=== PATIENT | male | born 1975 | race Caucasian/White ===

== ENCOUNTER 2023-10-30 10:23 | Emergency (ER) | payer OTHER, SELFPAY ==
[2023-10-30 10:25] VITALS: BP 120/74; PULSE 72; RESP 14; TEMP 36.6; O2SAT 99; BMI 24.3
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
[2023-10-30] MEDS: LACTATED RINGERS 1000ML 1,000 ML 999 ML IV (11:45)
[2023-10-30] MEDS: PROCHLORPERAZINE 10MG/2ML VIAL 10 MG IV (11:53)
[2023-10-30] MEDS: KETOROLAC 30MG/ML VIAL 15 MG IV (11:53)
[2023-10-30] MEDS: DEXAMETHASONE 4MG/ML 1ML VIAL 10 MG IV (11:53)
[2023-10-30] MEDS: ACETAMINOPHEN 1,000MG/100ML VIAL 1000 MG IV (11:57)
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
[2023-10-30 13:44] VITALS: BP 126/70; PULSE 70; RESP 18; TEMP 36.4; O2SAT 98
== END 2023-10-30 13:45 | disposition home or self-care (01) ==
PROVIDERS: Emergency Provider Emergency Medicine
DX: R51.9 Headache, unspecified (principal); F07.81 Postconcussional syndrome; F17.210 Nicotine dependence, cigarettes, uncomplicated; V47.5XXA Car driver injured in collision with fixed or stationary object in traffic accident, initial encounter; Y92.410 Unspecified street and highway as the place of occurrence of the external cause
CPT/HCPCS: 70450; 96361; 96374; 96375; 99284; J0131